=== PATIENT | male | born 1990 | race Caucasian/White ===

== ENCOUNTER 2017-04-09 12:20 | Emergency (ER) | payer BC ==
--- NOTE | ~2017-04-09 | CR142 ---
[facility]. [facility] A Service of [facility] RADIOLOGY TEXT RESULTS PATIENT: CHICA TOM LOCATION: SED : [birth year] UNIT #: [id number] AGE: [address]: LAVELL JUAREZ SEX: M ORDER DR: [id number] [place] [id number] E MR#: [id number] Acc #: [id number] NAME: CHICA TOM. : 1990 SEX: M STUDY DATE/TIME: UNIT: SED ROOM: STUDY DESCRIPTION: CR Hand Min 3 Views Rt Attending Physician: Lavell Juarez Ordering Physician: Lavell Juarez Primary Care Physician: Primary Care Physician No MEDICAL IMAGING REPORT This report is preliminary unless electronic signature is present. EXAM Right hand 3 views 04/09/2017 1252 hours HISTORY Patient suffered laceration to right middle finger while mowing a lawn today. COMPARISON None FINDINGS AP, lateral and oblique views demonstrate normal bone density. The distal radius and ulna, carpal bones, metacarpals are normal. There is no fracture, dislocation or foreign body seen. IMPRESSION No fracture, dislocation or foreign body seen. Dictated by... Lis Gaviria M.D. THIS IS AN ELECTRONICALLY VERIFIED REPORT Lis Gaviria M.D. at 04/10/2017 8:53 AM SMBernardo/enrrique TD: 04/09/2017 19:11 JOB #: [id number] MEDICAL IMAGING REPORT Page 1 of 1
[~2017-04-09 12:20] MED LIST: NO MEDICATIONS; ORUDIS75 M1 PO; VICODIN 5/500 T1 TAB PO
== END 2017-04-09 14:31 ==
LOC: SED 12:20
DX: S66.322A Laceration of extensor muscle, fascia and tendon of right middle finger at wrist and hand level, initial encounter (principal); G43.909 Migraine, unspecified, not intractable, without status migrainosus; Z88.1 Allergy status to other antibiotic agents; W25.XXXA Contact with sharp glass, initial encounter; Y92.69 Other specified industrial and construction area as the place of occurrence of the external cause; Y99.0 Civilian activity done for income or pay; Z23 Encounter for immunization
CPT/HCPCS: 73130; 90471; 90715; 99283

== ENCOUNTER 2017-04-18 22:06 | Emergency (ER) | payer BC ==
[~2017-04-18] VITALS: Ht 177.8 cm; Wt 88.5 kg
[2017-04-18] MEDS ORDERED: ANTIBIOTIC (22:16)
== END 2017-04-19 00:01 | disposition home or self-care (01) ==
LOC: SED 22:06
DX: J06.9 Acute upper respiratory infection, unspecified (principal); F17.210 Nicotine dependence, cigarettes, uncomplicated; Z88.1 Allergy status to other antibiotic agents
CPT/HCPCS: 94640; 99283